=== PATIENT | male | born 1960 | race Caucasian/White ===

== ENCOUNTER → 2017-11-01 09:25 | Outpatient (CLI) | payer OTHER, SELFPAY ==
--- NOTE | 2017-11-01 08:11 | VDLE_ITS ---
Reason For Study: LEG SWELLING RIGHT LEFT GSV is normal. CFV is compressible, spontaneous, phasic, CFV is compressible, spontaneous, phasic, competent, and demonstrates normal competent and demonstrates normal augmentation. augmentation. FV is compressible, spontaneous, phasic, competent and demonstrates normal augmentation. POP V is compressible, spontaneous, phasic, competent and demonstrates normal augmentation. T/P Trunk is compressible. PTV is compressible. RT PerV is compressible. Procedure Exam performed in department. A preliminary report was called and/or faxed to Dr. Tellez. Interpretation Summary Deep veins of the right lower extremity are patent and compressible segmentally. There is no evidence of right lower extremity deep vein thrombosis. Valvular competence appears intact within the proximal deep venous system on the right . The right greater saphenous vein appears patent and compressible segmentally. Ordering Physician: Tessa Tellez Performed By: Sindy Richardson RVT
--- NOTE | 2017-11-01 09:25 | DT_ITS ---
This patient was seen during an EMR downtime October 29, 2017 - November 05, 2017. This patient may have a combination of paper and electronic documentation or all paper documentation. All documentation is viewable within the e-chart portion of [facility] for each patient visit.
== END ==
PROVIDERS: Family Provider Internal Medicine; PCP Internal Medicine; Visit Provider Internal Medicine
DX: M79.89 Other specified soft tissue disorders (principal)
CPT/HCPCS: 93971

== ENCOUNTER → 2019-03-05 12:00 | Outpatient (CLI) | payer OTHER, SELFPAY ==
--- NOTE | 2019-03-05 12:09 | US_ITS ---
STUDY: SCROTUM ULTRASOUND REASON FOR EXAM: Male, 58 years old. Left testicular pain TECHNIQUE: Ultrasound evaluation of the scrotum was performed with color Doppler and static ellis-scale imaging. COMPARISON: None. FINDINGS: RIGHT TESTICLE INTRATESTICULAR: There is a normal size of the right testicle. The right testicle measures 4.7 x 2.9 x 2.3 cm. There is a homogenous echotexture. There is normal arterial and normal venous vascularity. There is no demonstrated right testicular mass or cyst. EXTRATESTICULAR: The epididymis is normal in size. The epididymis head measures 1.0 x 1.2 x 0.7 cm. There is normal vascularity of the epididymis. There is no demonstrated epididymal cystic structure. There is no demonstrated hydrocele. There is no demonstrated varicocele. There is no demonstrated extratesticular mass or cyst. LEFT TESTICLE INTRATESTICULAR: There is a normal size of the left testicle. The left testicle measures 4.4 x 3.1 x 2.4 cm. There is a homogenous echotexture. There is normal arterial and normal venous vascularity. There is no demonstrated left testicular mass or cyst. EXTRATESTICULAR: The epididymis is enlarged. The epididymis head measures 0.8 x 1.7 x 1.5 cm. There is normal vascularity of the epididymis. There is a 0.9 x 1.0 x 1.0 cm left epididymal head cyst. There is a small hydrocele. There is no demonstrated varicocele. There is no demonstrated extratesticular mass or cyst. US/Testicular with Arterial Flow IMPRESSION: Left epididymal head cyst. Small left hydrocele. Electronically Signed: Lito Carlisle MD at 19:39 EDT , Service support ,
== END ==
PROVIDERS: Family Provider Internal Medicine; PCP Internal Medicine; Referring Provider Internal Medicine; Visit Provider Internal Medicine
DX: N50.812 Left testicular pain (principal)
CPT/HCPCS: 76870; 93976

== ENCOUNTER → 2020-02-23 16:23 | Outpatient (CLI) | payer OTHER, SELFPAY ==
[2016-06-16 23:44] VITALS: BMI 31.6
[2020-02-23 18:04] LABS: Absolute Lymphocyte Count 1.48 X10^3/uL (0.83-4.51); Absolute Neutrophil Count 16.3 X10^3/uL (2.0-7.7); Basophil# 0.05 X10^3/uL; Basophil% 0.3 % (0-1); Eosinophil# 0.02 X10^3/uL; Eosinophils% 0.1 % (0-5); Hemoglobin 15.3 g/dL (13.0-16.5); Lymphocyte # 1.48 X10^3/ul (4.0); Lymphocyte % 7.6 % (19-41); Mean Corpuscular Volume 85.2 fL (80-94); Mean Platelet Vol. 10.8 fl (6.2-12.0); Monocyte% 8.2 % (0-10); NRBC Flagged by Analyzer 0 % (0-5); Neutrophil # 16.27 X10^3/uL (2.7-7.7); Neutrophil % 83.2 % (47-70); POSITIVE DIFFERENTIAL YES; Platelet Count 285 K/mm3 (150-450); RBC Distribution Width CV 13.1 % (11.6-14.6); RBC Distribution Width SD 40.8 fl (35.1-43.9); Red Blood Count 5.28 M/mm3 (4.6-6.2); White Blood Count 19.5 K/mm3 (4.4-11.0)
[2020-02-23 18:15] LABS: Differential Indicated SCAN CRITERIA MET
[2020-02-23 18:21] LABS: ALB/GLOB Ratio 0.8 RATIO (0.9-2.4); AST(SGOT) 10 U/L (15-37); Alanine Aminotransfer ALT/SGPT 30 U/L (16-61); Albumin, Serum 3.5 g/dL (3.2-5.0); Alkaline Phosphatase 117 U/L (45-117); Amylase 25 U/L (25-115); Anion Gap 6 (5-15); BUN 12 mg/dL (7-18); Calcium,Total 9.3 mg/dL (8.5-10.1); Chloride 98 mmol/L (98-107); EST Glomerular Filtration Rate 66 mL/min (>60); Est Glom Filt Rate - Afr Amer 79 mL/min (>60); Globulin 4.5 g/dL (2.2-4.2); Glucose 261 mg/dL (74-106); Lipase 59 U/L (73-393); Sodium Level 129 mmol/L (136-145)
[2020-02-23 18:44] LABS: Differential Comment SCANNED
[2020-02-24 15:40] LABS: Pathologist Review Reviewed
== END ==
PROVIDERS: PCP Internal Medicine; Referring Provider Internal Medicine; Visit Provider Internal Medicine
DX: R10.11 Right upper quadrant pain (principal)
CPT/HCPCS: 36415; 80053; 82150; 83690; 85025

== ENCOUNTER → 2020-02-24 10:22 | Outpatient (CLI) | payer OTHER, SELFPAY ==
[2016-06-16 23:44] VITALS: BMI 31.6
--- NOTE | 2020-02-24 10:26 | US_ITS ---
STUDY: ABDOMINAL ULTRASOUND - RIGHT UPPER QUADRANT REASON FOR VISIT: Male, 59 years old RUQ PAIN TECHNIQUE: Ultrasound evaluation of the right upper quadrant was performed with real-time and static ellis-scale imaging. TECHNICAL QUALITY: Adequate. COMPARISON: None. FINDINGS: Liver: The liver measures 15.1 cm. There is normal echogenicity of the liver. The bile ducts are within normal limits. There is hepatic color flow. The direction of portal flow is hepatopetal. There is no demonstrated mass lesion. Gallbladder: Normal distended gallbladder. The gallbladder wall is thickened and measures 8.7 mm. There is a positive sonographic Bustamante''s sign. There is pericholecystic fluid. Sludge is seen within the gallbladder lumen. Common Bile Duct (C.B.D.): The common bile duct measures 5.9 mm. Pancreas: Normal size of the head, body and tail of the pancreas. There is normal echogenicity of the pancreas. There is no demonstrated pancreatic mass or cyst. Right Kidney: Normal size of the right kidney. The right kidney measures 10.8 cm x 5.7 cm x 5.7 cm. Normal renal cortex. The right cortex measures 1.6 cm. There is no demonstrated renal mass or cyst. There is no right hydronephrosis. US/Gallbladder IMPRESSION: Gallbladder sludge. Thickening of the gallbladder wall with small amount of pericholecystic fluid. Findings are in keeping with cholecystitis. Electronically Signed: Horacio Muller, at 12:13 EDT , Service support ,
== END ==
PROVIDERS: PCP Internal Medicine; Referring Provider Internal Medicine; Visit Provider Internal Medicine
DX: R10.11 Right upper quadrant pain (principal)
CPT/HCPCS: 76705

== ENCOUNTER 2020-02-24 13:54 | Observation (INO) | payer OTHER, SELFPAY ==
[2020-02-24 13:55] VITALS: BP 135/89; PULSE 116; RESP 16; TEMP 37.3; O2SAT 97; BMI 32.3
--- NOTE | 2020-02-24 14:08 | ED.VIS.GEN ---
History of Present Illness Chief Complaint: Abd Pain Informant: Patient Narrative: Patient states that on Sunday night when he ate a pizza began to experience acute abdominal pain. States over the next several days he found that he just did not need he did not really feel that bad. Today he had some outpatient blood work that showed a 19,000 white count and he had a gallbladder ultrasound that showed sludge pericholecystic fluid and gallbladder wall thickening. Dr. Lipscomb from general surgery was contacted who asked the patient to come to the hospital. Patient last had anything to drink at 2130 hours last night. Past Medical History - Allergies and Home Meds Allergies/Adverse Reactions: Allergies No Known Allergies Allergy (Verified 02/24/20 13:54) Past Medical History: - - Diabetes Surgical History: appendectomy, tonsillectomy Smoking Status: Never smoker Drugs: None Review of Systems General: Denies: Chills, Fever, Sweats Eyes: Denies: Visual changes - bilaterally, Diplopia ENT: Denies: Rhinorrhea, Sore throat Cardiovascular: Denies: Chest pain, Palpitations Respiratory: Denies: Dyspnea, Cough, Dyspnea on exertion Gastrointestinal: Reports: Abdominal pain, Nausea. Denies: Vomiting, Diarrhea, Melena, Hematochezia Genitourinary: Denies: Dysuria, Hematuria, Frequency Musculoskeletal: Denies: Back pain, Extremity Pain Skin: Denies: Rash, Wounds Neurological: Denies: Headache, Weakness, Numbness Physical Exam Vital Signs/Narrative: Vital Signs Temp Pulse Resp BP Pulse Ox 02/24/20 13:55 99.1 F 116 H 16 135/89 H 97 Inital Vital Signs reviewed: Yes General: Well nourished, Well developed, No Acute Distress Head: Normocephalic, Atraumatic Eyes: Perrl, EOMI ENT: Moist mucous membranes, No rhinorrhea Neck: Supple, Nontender Cardiovascular: Regular rate, Regular rhythm, No murmurs Respiratory: No distress, CTA bilaterally, Chest nontender Abdomen: Soft, Nondistended, Normal bowel sounds, Tender, Guarding, Rebound tenderness Back: Nontender, Normal Inspection Extremities: Nontender, No edema Skin: Normal color, No rash Neurological: Alert, Oriented x3, Cranial nerves II-XII grossly intact, Normal Strength, Normal Sensation Psychological: Normal affect, Normal Mood Diagnostic/Tx/Re-eval US/Gallbladder IMPRESSION: Gallbladder sludge. Thickening of the gallbladder wall with small amount of pericholecystic fluid. Findings are in keeping with cholecystitis. Electronically Signed: Horacio Yohana, at 12:13 EDT - EKG Initial EKG Interpretation: Sinus Rhythm - EKG demonstrates a normal sinus rhythm at a rate of 93 without ectopy or concerning features of ACS - Medical Decision Making Patient's white count is 19,000. AST and ALT are not elevated. Normal lipase. Dr. Lipscomb was contacted. He will be in the emergency department to see the patient. Patient will be admitted for cholecystectomy. He received IV fluids and Zosyn. ED Disposition - Plan for ED Patient: Disposition: Acute Care Hospital [facility] Diagnosis: Acute cholecystitis
[2020-02-24] MEDS: 0.9% Normal Saline 1,000 ML 999 ML IV (14:11)
[2020-02-24 14:31] VITALS: BP 154/81; RESP 16; TEMP 36.7; O2SAT 97; BMI 32.3
--- NOTE | 2020-02-24 14:50 | EKG12_ITS ---
Test Reason : PREOP Blood Pressure : / mmHG Vent. Rate : 093 BPM Atrial Rate : 093 BPM P-R Int : 150 ms QRS Dur : 078 ms QT Int : 350 ms P-R-T Axes : 033 003 000 degrees QTc Int : 435 ms Normal sinus rhythm Normal ECG Confirmed by PILY RIOS, COTY ([id number]), tightener STEVE AWAD ([id number]) on 03/02/2020 8:59:36 AM Referred By: Tessa Tellez Confirmed By:BETSEY NASCIMENTO MD
[2020-02-24 14:55] VITALS: BP 154/81; PULSE 101; RESP 14; TEMP 36.8; O2SAT 96
[2020-02-24] MEDS: 0.9% Normal Saline 1,000 ML 150 ML IV (15:18)
[2020-02-24 15:31] VITALS: BMI 32.3
[2020-02-24 15:39] VITALS: BMI 31.6
[2020-02-24 16:01] VITALS: BMI 31.6
[2020-02-24 16:20] VITALS: BP 140/82; PULSE 90; RESP 18; TEMP 36.9; O2SAT 97
--- NOTE | 2020-02-24 16:37 | HP.PCM_ITS ---
Problem List (1) Acute cholecystitis Status: Acute History of Present Illness Date of Admission: 02/24/20 Patient states that on Sunday night when he ate a pizza began to experience acute abdominal pain. States over the next several days he found that he just did not need he did not really feel that bad. Today he had some outpatient blood work that showed a 19,000 white count and he had a gallbladder ultrasound that showed sludge pericholecystic fluid and gallbladder wall thickening. Patient last had anything to drink at 2130 hours last night. Past Medical History Allergies No Known Allergies Allergy (Verified 02/24/20 13:54) Home Medications: Ambulatory Orders Medication Instructions Recorded Insulin Aspart [Novolog Flexpen] 12 units SQ TIDCM 06/17/16 Insulin Detemir [Levemir FlexPen] 20 mg SQ DAILY 06/17/16 Aspirin [Aspirin, Baby] 81 mg PO DAILY@0800 02/24/20 [place]-3 Fatty Acids/Fish Oil 1 ea PO DAILY 02/24/20 [[place] 3 1,000 mg Softgel] Surgical History: appendectomy, tonsillectomy Smoking Status: Never smoker Tobacco Use: Non-smoker Drugs: None - *Family History Maternal History Items: No pertinent history Review of Systems Constitutional: Denies: Chills, Fever, Weight Change Cardiovascular: Denies: Chest Pain, Chest Pressure, Chest Tightness, Palpitations Respiratory: Denies: Cough, Hemoptysis, Shortness of breath at rest, Shortness of breath upon exertion, Wheezing Gastrointestinal: Reports: Abdominal Pain, Nausea Genitourinary: Denies: Dysuria, Frequency, Hematuria, Urgency VTE Information - Inpt Only VTE Present on Admission: No VTE Mechan Device Prophylaxis: SCD's VTE Pharm Prophylaxis ordered?: No Reason prophylaxis not ordered:: Treatment Not Indicated Patient Problems: Active and Suspected Problems Acute cholecystitis (Acute) - Physical Exam Vitals/I&O's: Vital Signs Temp Pulse Resp BP Pulse Ox 98.4 F 90 18 140/82 H 97 02/24/20 16:20 02/24/20 16:20 02/24/20 16:20 02/24/20 16:20 02/24/20 16:20 Oxygen Delivery Method Room Air Weight: 195 lb 12.786 oz Body Mass Index (BMI) 31.6 Intake and Output for Last 24 Hours 02/22/20 02/23/2020 23:59 23:59 23:59 Intake Total 1100 / 1100 Balance 1100 / 1100 General: Alert, Oriented x3 Lungs: Clear to auscultation Cardiovascular: Regular rate, Regular Rhythm, No murmurs Abdomen: Bowel Sounds Present, Soft, Non-Distended, Tender - Patient has tenderness in the right upper quadrant. There is no rebound guarding or peritoneal signs identified. Current Medications Hydromorphone HCl (Dilaudid Inj) 0.5 - 1 mg IV Q2H PRN PRN PRN Reason: Pain Score 1-10/10 Sodium Chloride () 1,000 mls @ 150 mls/hr IV .Q6H40M SUMA Last Admin: 02/24/20 15:18 Dose: 150 mls/hr Documented by: Sodium Chloride () 1,000 mls @ 100 mls/hr IV .Q10H SUMA Piperacillin Sod/Tazobactam (Sod 3.375 gm/ Sodium Chloride) 50 mls @ 12.5 mls/hr IV Q8 SUMA Ondansetron HCl (Zofran) 4 mg IV Q8H PRN PRN PRN Reason: NAUSEA Sodium Chloride () 10 - 40 ml IV UD PRN PRN Reason: SALINE FLUSH Assessment/Plan All Active Problems Acute cholecystitis (Acute) Plan will be to admit the patient tonight and perform a laparoscopic cholecystectomy on him early in the morning. Risk benefits to include bleeding infection possible injury to surrounding structures which may require further surgery. Patient also understands that blood clots heart attacks pneumonia strokes are part of general surgery risk. All questions asked were answered and he is willing to proceed. Inpatient E&M: 29044 Init Hosp L3
[2020-02-24 16:45] LABS: Bedside Glucose 181 mg/dL (70-110)
--- NOTE | 2020-02-24 17:24 | PN_ITS ---
<Chayito Solo [employer]PATCH[employer] - Last Filed: 02/24/20 17:29> Patient Problems: Active and Suspected Problems Acute cholecystitis (Acute) Subjective: Patient seen and examined. Reports Sunday night he ate pizza and has had right upper quadrant pain, indigestion, gas since that time. He states the pain has kept him up at night. He went to his primary care physician yesterday who obtained lab work. He then had gallbladder ultrasound today which showed cholecystitis. Dr. Lipscomb admitting for cholecystectomy. He has a past medical history of type 2 diabetes mellitus. Denies other past medical history. - Physical Exam Vitals/I&O's: Vital Signs Temp Pulse Resp BP Pulse Ox 98.4 F 90 18 140/82 H 97 02/24/20 16:20 02/24/20 16:20 02/24/20 16:20 02/24/20 16:20 02/24/20 16:20 Oxygen Delivery Method Room Air Weight: 195 lb 12.786 oz Body Mass Index (BMI) 31.6 Intake and Output for Last 24 Hours 02/22/20 02/23/20 02/24/20 23:59 23:59 23:59 Intake Total 1302.5 / 1302.5 Balance 1302.5 / 1302.5 General: Alert, Oriented x3, Cooperative HEENT: Atraumatic, PERRLA, EOMI, Normocephalic Neck: Supple, No JVD, Negative Carotid Bruits Lungs: Clear to auscultation, Normal air movement Cardiovascular: Regular rate, No murmurs Abdomen: Bowel Sounds Present, Soft, Non-Distended, Tender Extremities: No clubbing, No cyanosis, No edema, Capillary Refill Less than 3 Seconds Skin: No rashes, No breakdown Musculoskeletal: No Tenderness to Palpation of Joints or Extremities Neurological: Cranial nerves II-XII grossly intact, Neuro grossly intact Psych/Mental Status: Normal Affect, Appropriate Laboratory Results 02/24/20 16:25: POC Glucose 181 H Current Medications Dextrose (D50w Syringe) 0 gm IV X1 PRN; Protocol PRN Reason: Hypoglycemia Glucagon () 1 mg IM .X1 PRN PRN Reason: Hypoglycemia Hydromorphone HCl (Dilaudid Inj) 0.5 - 1 mg IV Q2H PRN PRN PRN Reason: Pain Score 1-10/10 Sodium Chloride () 1,000 mls @ 100 mls/hr IV .Q10H SUMA Last Infusion: 02/24/20 16:39 Dose: 100 mls/hr Documented by: Piperacillin Sod/Tazobactam (Sod 3.375 gm/ Sodium Chloride) 50 mls @ 12.5 mls/hr IV Q8 SUMA Insulin Human Lispro (Humalog Kwikpen (Bkc)) 12 unit SC TIDCM SUMA Last Admin: 02/24/20 16:56 Dose: Not Given Documented by: Insulin Human Lispro (Humalog Kwikpen (Bkc)) 0 unit SC ACHS SUMA; Protocol Non-Formulary Medication (Insulin Detemir [Levemir Flexpen]) 20 mg SQ DAILY SUMA Ondansetron HCl (Zofran) 4 mg IV Q8H PRN PRN PRN Reason: NAUSEA Sodium Chloride () 10 - 40 ml IV UD PRN PRN Reason: SALINE FLUSH Medical Necessity - Tobacco Use Smoking Status: Never smoker Tobacco Use: Non-smoker Assessment/Plan All Active Problems Acute cholecystitis (Acute) 1. Type 2 diabetes mellitus-recent hemoglobin A1c by primary care provider 8.3%. Hold Levemir. Accu-Cheks with sliding scale insulin. 2. Acute cholecystitis-plan for cholecystectomy in a.m. PRN pain regimen. Management per surgery. DVT prophylaxis-SCDs This patient was seen by CLARA Goldman under the supervision of Dr. Perez. <Brynn Perez - Last Filed: 02/24/20 19:30> - Physical Exam Vitals/I&O's: Vital Signs Temp Pulse Resp BP Pulse Ox 98.4 F 90 18 140/82 H 97 02/24/20 16:20 02/24/20 16:20 02/24/20 16:20 02/24/20 16:20 02/24/20 16:20 Oxygen Delivery Method Room Air Weight: 88.813 kg Body Mass Index (BMI) 31.6 Intake and Output for Last 24 Hours 02/22/20 02/23/20 02/24/20 23:59 23:59 23:59 Intake Total 1302.5 / 1302.5 Balance 1302.5 / 1302.5 Laboratory Results 02/24/20 16:25: POC Glucose 181 H 02/24/20 17:15: Sodium 135 L, Potassium 3.6, Chloride 104, Carbon Dioxide 25.0, Anion Gap 6, BUN 15, Creatinine 1.09, Estim Creat Clear Calc 65.04, Est GFR (MDRD) Af Amer 89, Est GFR (MDRD) Non-Af 73, BUN/Creatinine Ratio 13.8, Glucose 166 H, Calcium 8.6, Total Bilirubin 2.90 H, AST 9 L, ALT 23, Alkaline Phosphata se 107, Total Protein 7.2, Albumin 2.9 L, Globulin 4.3 H, Albumin/Globulin Ratio 0.7 L Current Medications Dextrose (D50w Syringe) 0 gm IV X1 PRN; Protocol PRN Reason: Hypoglycemia Glucagon () 1 mg IM .X1 PRN PRN Reason: Hypoglycemia Hydromorphone HCl (Dilaudid Inj) 0.5 - 1 mg IV Q2H PRN PRN PRN Reason: Pain Score 1-10/10 Sodium Chloride () 1,000 mls @ 100 mls/hr IV .Q10H SUMA Last Infusion: 02/24/20 16:39 Dose: 100 mls/hr Documented by: Piperacillin Sod/Tazobactam (Sod 3.375 gm/ Sodium Chloride) 50 mls @ 12.5 mls/hr IV Q8 SUMA Insulin Human Lispro (Humalog Kwikpen (Bkc)) 0 unit SC ACHS SUMA; Protocol Ondansetron HCl (Zofran) 4 mg IV Q8H PRN PRN PRN Reason: NAUSEA Sodium Chloride () 10 - 40 ml IV UD PRN PRN Reason: SALINE FLUSH Assessment/Plan This patient was seen in conjunction with Chayito Solo NP. I have independently interviewed and examined the patient and reviewed pertinent historical, laboratory, and other data. Please refer to her note for patient's presentation, findings, and recommendations. 59-year-old male with past medical history of type II DM, ongoing for about 10 years, follows with Dr. Tellez, probable history of reactive airway disease who comes in with complaints of right upper quadrant pain ongoing for 5 days. Patient stated that he has had irritable bowel syndrome for more than 6 months. He gets bloated and subsequently has diarrhea with improvement in his discomfort. He ate pizza 5 days ago and had abdominal distention, abdominal pain more in the right upper quadrant. This was worse when he ate. Relieved with no food. Sometimes relieved when he laid on his left side. It persisted the next day and he drank a bottle of Pepto-Bismol with no improvement. He saw his primary care doctor yesterday and blood work done showed elevated totral bilirubin of 3.50. He was scheduled for ultrasound of the abdomen which showed acute cholecystitis with pericholecystic fluid with biliary sludge. Vitals were reviewed -stable Repeat blood work showed sodium of 135, improved from 129, total bilirubin was 2.90, improved from 3.5. Physical Exam: Gen: Comfortable, not pale, not jaundiced, alert oriented x3 CVS:HS I +II, regular, no murmurs RESP: CTA GI: BS present and normal, nontender, no palpable organs EXT:No edema ASSESSMENT: 1. Acute cholecystitis 2. Hyponatremia 3. Type 2 DM, recent HbA1c a week ago was 8.3 Plan: Continue on IV Zosyn We will hold off on insulin and pre-meal for now Continue with blood glucose checks with insulin sliding scale May resume insulins after surgery tomorrow if patient has started to take in food. Inpatient E&M: 67775 Subs Hosp L2
[2020-02-24 18:20] LABS: ALB/GLOB Ratio 0.7 RATIO (0.9-2.4); AST(SGOT) 9 U/L (15-37); Alanine Aminotransfer ALT/SGPT 23 U/L (16-61); Albumin, Serum 2.9 g/dL (3.2-5.0); Alkaline Phosphatase 107 U/L (45-117); Anion Gap 6 (5-15); BUN 15 mg/dL (7-18); BUN/Creat Ratio 13.8 RATIO (10-20); Calcium,Total 8.6 mg/dL (8.5-10.1); Chloride 104 mmol/L (98-107); Creatinine, Serum 1.09 mg/dL (0.70-1.30); EST Glomerular Filtration Rate 73 mL/min (>60); Est Glom Filt Rate - Afr Amer 89 mL/min (>60); Estimated Creatinine Clearance 65.04 ml/min; Globulin 4.3 g/dL (2.2-4.2); Glucose 166 mg/dL (74-106); Potassium 3.6 mmol/L (3.5-5.1); Protein, Total 7.2 g/dL (6.4-8.2); Sodium Level 135 mmol/L (136-145)
[2020-02-24 21:26] VITALS: BP 115/67; PULSE 88; RESP 16; TEMP 38; O2SAT 100
[2020-02-24 22:05] LABS: Bedside Glucose 218 mg/dL (70-110)
[2020-02-25] VITALS (13 sets, daily range): BP systolic 121–143; BP diastolic 67–76; PULSE 73–94; RESP 16–18; TEMP 36.4–37.6; O2SAT 94–98; BMI 31.6
[2020-02-25] MEDS: 0.9% Normal Saline 1,000 ML 100 ML IV ×3 (00:04→20:50)
[2020-02-25 05:20] LABS: Bedside Glucose 178 mg/dL (70-110)
[2020-02-25 05:49] LABS: Absolute Lymphocyte Count 1.61 X10^3/uL (0.83-4.51); Absolute Neutrophil Count 7.9 X10^3/uL (2.0-7.7); Basophil# 0.06 X10^3/uL; Basophil% 0.6 % (0-1); Eosinophils% 1.9 % (0-5); Hemoglobin 13.9 g/dL (13.0-16.5); Lymphocyte # 1.61 X10^3/ul (4.0); Mean Corp Hgb Conc 33.9 g/dL (32-36); Mean Corpuscular Hgb 29.6 pg (27.0-32.0); Mean Corpuscular Volume 87.2 fL (80-94); Mean Platelet Vol. 10.1 fl (6.2-12.0); Monocyte# 0.84 X10^3/uL; Monocyte% 7.8 % (0-10); NRBC Flagged by Analyzer 0 % (0-5); Neutrophil # 7.94 X10^3/uL (2.7-7.7); Neutrophil % 73.7 % (47-70); Platelet Count 306 K/mm3 (150-450); RBC Distribution Width CV 12.9 % (11.6-14.6); RBC Distribution Width SD 41.1 fl (35.1-43.9); White Blood Count 10.8 K/mm3 (4.4-11.0)
[2020-02-25 06:06] LABS: ALB/GLOB Ratio 0.6 RATIO (0.9-2.4); AST(SGOT) 15 U/L (15-37); Alanine Aminotransfer ALT/SGPT 26 U/L (16-61); Albumin, Serum 2.8 g/dL (3.2-5.0); Alkaline Phosphatase 106 U/L (45-117); Amylase 33 U/L (25-115); Anion Gap 5 (5-15); BUN 12 mg/dL (7-18); BUN/Creat Ratio 11.4 RATIO (10-20); Calcium,Total 8.6 mg/dL (8.5-10.1); Chloride 103 mmol/L (98-107); Creatinine, Serum 1.05 mg/dL (0.70-1.30); EST Glomerular Filtration Rate 76 mL/min (>60); Est Glom Filt Rate - Afr Amer 92 mL/min (>60); Estimated Creatinine Clearance 67.51 ml/min; Globulin 4.5 g/dL (2.2-4.2); Glucose 161 mg/dL (74-106); Lipase 59 U/L (73-393); Potassium 3.7 mmol/L (3.5-5.1); Protein, Total 7.3 g/dL (6.4-8.2); Sodium Level 133 mmol/L (136-145)
[2020-02-25] MEDS: Bupivacaine Mpf 0.5% 30 ML VIAL (08:07)
--- NOTE | 2020-02-25 08:20 | GALL_PTH ---
PATIENT: HOSEA CUENCA LOC: MS3 U#:[id number] AGE/SX: 59/M ROOM: OK310 RE02/24/[address]: Dr. Wesley Jenkins DO : 1960 BED: 1 DIS: 02/26/2020 SPEC #: [id number] RECD: 02/25/20 10:39 STATUS: CHRIS REQ #: [id number] SELENA: 02/25/20 08:[address]: Dylon Lipscomb DEPT: SURGICAL PATHOLOGY RECD BY: Fernando Ramirez ENTERED: 02/25/20 11:41 SP TYPE: GALLBLADDE OTHR DR: MD Dr. yDlon Dia MD Dr. Eric Jopperi, DO Tissues: Gallbladder, NOS Procedures: Surgery Specimen Level III Comments: @ Ordering doctor for SUIII edited from to DR.DPEABO Pappas by TAMAR at 02/25/20 1312 @ Submitting doctor edited from to DR.DPEABO Pappas by TAMAR at 02/25/20 1312 HEADER OPERATION: Laparoscopic cholecystectomy PRE-OP DIAGNOSIS: Acute cholecystitis TISSUE SUBMITTED: Gallbladder MICROSCOPIC DIAGNOSIS Gallbladder, cholecystectomy: Acute and chronic hemorrhagic and ulcerated cholecystitis and cholelithiasis. Reactive epithelial changes. SJ:calixto 02/26/20 MICROSCOPIC DESCRIPTION Slides are reviewed. GROSS DESCRIPTION Received is one container labeled with the patient's name and designated gallbladder. The specimen consists of a gallbladder measuring 10 x 5 x 3.5 cm. The external surface is smooth and glistening. Focally, it is granular, hemorrhagic and contains cautery artifact. The lumen of the gallbladder contains yellow mucoid bile and multiple black stones averaging 0.2 cm. The mucosa is bile-stained and without any mass lesions. The gallbladder wall averages 0.6 cm in thickness and is free of mass lesions. Replanting Machine Crewman sections of the gallbladder and the cystic duct at margin of resection are submitted in one cassette. / AM:calixto 02/25/20 TC:2 CPT: 04943
[2020-02-25] MEDS: Lactated Ringers 1,000 ML 100 ML IV (08:41)
--- NOTE | 2020-02-25 08:57 | OP.PCM_ITS ---
Problem List (1) Acute cholecystitis Status: Acute Report of Operation Date of Procedure: 02/25/20 Pre-Operative Diagnosis: Acute cholecystitis Post-Operative Diagnosis: Same Surgery/Procedure Performed:: Laparoscopic cholecystectomy Anesthesiologist: Ishmael Villalba Specimen's removed: Gallbladder Estimated Blood Loss (mL): < 25 cc Description of Procedure: Patient was brought into the operating room. Placed in the supine position. Under excellent general trach intubation the abdomen was sterilely prepped draped usual fashion. Local was injected infraumbilically. Incision was carried down to the fascia. Fascia was grasped with a [place]. Varies needle was placed inside the abdomen. The abdomen was insufflated 15 torr. A 10/12 trocar was placed without difficulty. The patient was placed in the head up and rotated to the left position. Subxiphoid #5 trochars placed. Inferior to this another #5 trocar laterally another #5 trocar. All of these under direct visualization without injury to underlying structures. I aspirated out the gallbladder. It was thick edematous and clearly acutely inflamed. I dissected down to the cystic duct remarkably I was able to find this without much difficulty at all I placed a Hemoclip proximally distally and ligated the duct. Divide the cystic artery placed a Hemoclip proximally distally and ligated the artery. Deliver the gallbladder from the gallbladder bed with use of electrocautery. Good pneumostasis. Placed a specimen a specimen bag and deli urszula through the umbilical port. I reinflated the abdomen used electrocautery on the liver bed since it was gangrenous in appearance I placed a drain through the lateral side-port suturing it to the skin with a 3-0 nylon. I deflated the abdomen and remove the trochars. I closed the fascia the umbilical port with interrupted 0 Vicryls. Skin incisions were closed with subcuticular stitches of 4 Monocryl. Steri-Strips were applied sterile dressings were applied and the patient tolerated the procedure well. - Admit VTE Documentation VTE Present on Admission: No VTE Mechan Device Prophylaxis: SCD's VTE Pharm Prophylaxis ordered?: No Reason prophylaxis not ordered:: Treatment Not Indicated [id number]: [id number] Laparoscopic cholecystectomy
[2020-02-25 09:01] LABS: Bedside Glucose 238 mg/dL (70-110)
[2020-02-25 10:10] LABS: Bedside Glucose 252 mg/dL (70-110)
--- NOTE | 2020-02-25 11:03 | PCM.PN.HOSP ---
Patient Problems: Active and Suspected Problems Acute cholecystitis (Acute) Reason for Visit: cholecystitis Subjective: Feels better after cholecystectomy. Had been having abdominal issues for about a month with eating. Vitals/I&O's: Vital Signs Temp Pulse Resp BP Pulse Ox 36.7 C 84 16 132/68 H 95 02/25/20 09:37 02/25/20 09:37 02/25/20 09:37 02/25/20 09:37 02/25/20 09:37 Oxygen Delivery Method Room Air Weight: 88.813 kg Body Mass Index (BMI) 31.6 Finger Stick Blood Glucose 238 Intake and Output for Last 24 Hours 02/23/20 02/24/20 02/25/20 23:59 23:59 23:59 Intake Total 1774.17 / 4.17 1912.42 / 191.42 Output Total 555 / 555 Balance 1774.17 / 2133.17 1357.42 / 1357.42 General: Alert, No apparent distress HEENT: Atraumatic, Normocephalic Oral: Moist Mucosa, No Gingival or Mucosal Lesions/ Ulcerations Neck: No Nodes, Thyroid Normal Size and Texture Lungs: Clear to auscultation, Normal air movement, No rhonchi, No wheeze, No rales Cardiovascular: Regular rate, Regular Rhythm, Normal S1, Normal S2 Abdomen: Hypoactive Bowel Sounds, Distended, Tender - slgiht Extremities: No clubbing, No edema Psych/Mental Status: Normal Affect, Appropriate Laboratory Results 02/24/20 16:25: POC Glucose 181 H 02/24/20 17:15: Sodium 135 L, Potassium 3.6, Chloride 104, Carbon Dioxide 25.0, Anion Gap 6, BUN 15, Creatinine 1.09, Estim Creat Clear Calc 65.04, Est GFR (MDRD) Af Amer 89, Est GFR (MDRD) Non-Af 73, BUN/Creatinine Ratio 13.8, Glucose 166 H, Calcium 8.6, Total Bilirubin 2.90 H, AST 9 L, ALT 23, Alkaline Phosphatase 107, Total Protein 7.2, Albumin 2.9 L, Globulin 4.3 H, Albumin/Globulin Ratio 0.7 L 02/24/20 21:31: POC Glucose 218 H 02/25/20 05:10: POC Glucose 178 H 02/25/20 05:30: WBC 10.8, RBC 4.70, Hgb 13.9, Hct 41.0, MCV 87.2, MCH 29.6, MCHC 33.9, RDW Std Deviation 41.1, RDW Coeff of Meredith 12.9, Plt Count 306, MPV 10.1, Immature Gran % (Auto) 1.000 H, Neut % (Auto) 73.7 H, Lymph % (Auto) 15.0 L, Stanley % (Auto) 7.8, Eos % (Auto) 1.9, Baso % (Auto) 0.6, Absolute Neuts (auto) 7.9 H, Absolute Lymphs (auto) 1.61, Nucleated RBC % 0 02/25/20 05:30: Sodium 133 L, Potassium 3.7, Chloride 103, Carbon Dioxide 25.0, Anion Gap 5, BUN 12, Creatinine 1.05, Estim Creat Clear Calc 67.51, Est GFR (MDRD) Af Amer 92, Est GFR (MDRD) Non-Af 76, BUN/Creatinine Ratio 11.4, Glucose 161 H, Calcium 8.6, Total Bilirubin 2.20 H, AST 15, ALT 26, Alkaline Phosphatase 106, Total Protein 7.3, Albumin 2.8 L, Globulin 4.5 H, Albumin/Globulin Ratio 0.6 L, Amylase 33, Lipase 59 L 02/25/20 08:57: POC Glucose 238 H 02/25/20 10:04: POC Glucose 252 H Current Medications Dextrose (D50w Syringe) 0 gm IV X1 PRN; Protocol PRN Reason: Hypoglycemia Glucagon () 1 mg IM .X1 PRN PRN Reason: Hypoglycemia Hydromorphone HCl (Dilaudid Inj) 0.5 - 1 mg IV Q2H PRN PRN PRN Reason: Pain Score 1-10/10 Sodium Chloride () 1,000 mls @ 100 mls/hr IV .Q10H [facility] Last Admin: 02/25/20 09:59 Dose: 100 mls/hr Documented by: Piperacillin Sod/Tazobactam (Sod 3.375 gm/ Sodium Chloride) 50 mls @ 12.5 mls/hr IV Q8 SUMA Last Infusion: 02/25/20 09:20 Dose: Infused Documented by: Sodium Chloride () 250 mls @ 15 mls/hr IV .[id number] PRN PRN Reason: Saline Flush Last Infusion: 02/25/20 05:02 Dose: 0 mls/hr Documented by: Sodium Chloride () 250 mls @ 15 mls/hr IV .[id number] PRN PRN Reason: Additional IVPB Infusion Insulin Human Lispro (Humalog Kwikpen (Bkc)) 0 unit SC ACHS [facility]; Protocol Last Admin: 02/25/20 05:14 Dose: Not Given Documented by: Ondansetron HCl (Zofran) 4 mg IV Q8H PRN PRN PRN Reason: NAUSEA Sodium Chloride () 10 - 40 ml IV UD PRN PRN Reason: SALINE FLUSH STROKE Vital Signs/Narrative: Vital Signs Temp Pulse Resp BP Pulse Ox 02/25/20 09:37 36.7 C 84 16 132/68 H 95 02/25/20 09:15 37.3 C 89 16 127/67 H 94 02/25/20 09:00 85 16 130/76 H 97 02/25/20 08:45 81 16 125/67 H 94 02/25/20 08:30 82 16 121/69 H 97 02/25/20 08:23 37.5 C H 82 16 138/67 H 98 Medical Necessity - Tobacco Use Smoking Status: Never smoker Tobacco Use: Non-smoker Assessment/Plan All Active Problems Acute cholecystitis (Acute) 1. DM2 resume levemir, but at a lower dose until eating adequately on SSI 2. Acute on chronic cholecystitis s/p lap barb drain in place 3. VTE prophylaxis: SCDs Inpatient E&M: [id number] [facility] Hosp L2
[2020-02-25] MEDS: Insulin Lispro 100 UNIT/ML INSULN.PEN SC ×3 (11:39→21:38)
[2020-02-25 12:46] LABS: Bedside Glucose 267 mg/dL (70-110)
--- NOTE | 2020-02-25 14:59 | CASEMGMT ---
Social Work Note Per biomass facilitator questions, pt has completed HCPOA and LW and have provided copies to [facility]. SW reviewed chart, no copies found. Pt made aware no copies are on chart. Pt states his son should be able to bring in copies. Celestina John PHONE MANAGER, WARP TESTER
[2020-02-25 16:50] LABS: Bedside Glucose 418 mg/dL (70-110)
[2020-02-25 21:56] LABS: Bedside Glucose 419 mg/dL (70-110)
[2020-02-26 02:00] VITALS: BP 110/52; PULSE 79; RESP 18; TEMP 36.7; O2SAT 99
[2020-02-26] MEDS: Insulin Lispro 100 UNIT/ML INSULN.PEN SC ×2 (06:27→11:12)
[2020-02-26 06:36] LABS: Bedside Glucose 265 mg/dL (70-110)
[2020-02-26] MEDS: 0.9% Normal Saline 1,000 ML 100 ML IV (07:55)
[2020-02-26 08:50] VITALS: BP 142/67; PULSE 78; RESP 18; TEMP 36.5; O2SAT 99
--- NOTE | 2020-02-26 09:40 | PCM.PN.HOSP ---
Patient Problems: Active and Suspected Problems Acute cholecystitis (Acute) Subjective: Feels better. Tolerating clears. Abdominal pain much improved. Vitals/I&O's: Vital Signs Temp Pulse Resp BP Pulse Ox 36.7 C 79 18 110/52 L 99 02/26/20 02:00 02/26/20 02:00 02/26/20 02:00 02/26/20 02:00 02/26/20 02:00 Oxygen Delivery Method Room Air Weight: 88.813 kg Body Mass Index (BMI) 31.6 Finger Stick Blood Glucose 238 Intake and Output for Last 24 Hours 02/24/20 02/25/20 02/26/20 23:59 23:59 23:59 Intake Total 1774.17 / 2134.17 3796.17 / 4156.17 1933 / 1933 Output Total 1715 / 2915 2210 / 2210 Balance 1774.17 / 2134.17 2081.17 / 1241.17 -277 / -277 General: Alert, No apparent distress HEENT: Atraumatic, Normocephalic Psych/Mental Status: Normal Affect, Appropriate Laboratory Results 02/25/20 10:04: POC Glucose 252 H 02/25/20 11:34: POC Glucose 267 H 02/25/20 16:18: POC Glucose 418 H 02/25/20 21:37: POC Glucose 419 H 02/26/20 06:26: POC Glucose 265 H Current Medications Dextrose (D50w Syringe) 0 gm IV X1 PRN; Protocol PRN Reason: Hypoglycemia Glucagon () 1 mg IM .X1 PRN PRN Reason: Hypoglycemia Hydromorphone HCl (Dilaudid Inj) 0.5 - 1 mg IV Q2H PRN PRN PRN Reason: Pain Score 1-10/10 Sodium Chloride () 1,000 mls @ 100 mls/hr IV .Q10H [facility] Last Admin: 02/26/20 07:55 Dose: 100 mls/hr Documented by: Piperacillin Sod/Tazobactam (Sod 3.375 gm/ Sodium Chloride) 50 mls @ 12.5 mls/hr IV Q8 SUMA Last Admin: 02/26/20 06:22 Dose: 12.5 mls/hr Documented by: Sodium Chloride () 250 mls @ 15 mls/hr IV .[id number] PRN PRN Reason: Saline Flush Last Infusion: 02/26/20 06:23 Dose: 0 mls/hr Documented by: Sodium Chloride () 250 mls @ 15 mls/hr IV .[id number] PRN PRN Reason: Additional IVPB Infusion Insulin Glargine (Lantus (Bkc)) 20 units SC DAILY [facility] Insulin Human Lispro (Humalog Kwikpen (Bk)) 0 unit SC ACHS [facility]; Protocol Last Admin: 02/26/20 06:27 Dose: 2 units Documented by: Ondansetron HCl (Zofran) 4 mg IV Q8H PRN PRN PRN Reason: NAUSEA Sodium Chloride () 10 - 40 ml IV UD PRN PRN Reason: SALINE FLUSH Medical Necessity - Tobacco Use Smoking Status: Never smoker Tobacco Use: Non-smoker Assessment/Plan All Active Problems Acute cholecystitis (Acute) 1. DM2 resume levemir at home dosing. 2. Acute on chronic cholecystitis s/p lap barb drain in place 3. VTE prophylaxis: SCDs Medically stable for discharge. EDGAR Lipscomb. Continue home medications with no changes. Inpatient E&M: [id number] [facility] Hosp L1
--- NOTE | 2020-02-26 09:49 | DCINST_ITS ---
Discharge Diet: Light diet - advance as tolerated Discharge Activity: May Not Drive - for 2-3 days or while taking narcotic pain medications., - - Do not drive, work heavy equipment or sign legal documents for 24 hours. May shower in (days): 1 - with the bandage in place. Additional Activity Instructions:: Pain medication may cause nausea. You should typically eat light foods as you take your pain medications. Pain medication may also cause constipation. If this is a problem for you, please discuss with your doctor. Call your doctor if your incision/area has: Continuous Slow Oozing, Sudden Increased Bleeding, Increased Pain/ Swelling, Increased Redness, Foul Smelling Discharge Call your doctor if you observe: Fever of 101 or Higher Suture Line Care: Avoid Pulling/Pushing, Avoid Pinching/Bending Additional Dressing/Incision Instructions:: Leave operative bandaids on for 2 days. When you remove dressing, leave Steri-Strips on until your follow-up appointment, or until the Steri-Strips fall off on their own. Allergies/Adverse Reactions: Allergies No Known Allergies Allergy (Verified 02/24/20 13:54) Medications to take at Discharge Insulin Aspart [Novolog Flexpen] 12 units SQ TIDCM 06/17/16 Insulin Detemir [Levemir FlexPen] 20 units SQ DAILY 06/17/16 Albuterol IH (ProAir) [Proair Hfa (SP)Vent Pts] 1 puff INHALATION Q6H PRN PRN 02/24/20 Dulera 100 Mcg/5 Mcg Inhaler 1 puff INHALATION BID PRN PRN 02/24/20 [place]-3 Fatty Acids/Fish Oil [[place] 3 1,000 mg Softgel] 1 ea PO DAILY 02/24/20 Primary Care Physician: Tessa Tellez MD [Primary Care Provider] - Test Results: Test results from this visit will be discussed in further detail at your follow- up appointment, if applicable. Please Follow Up With: Dylon Lipscomb MD - Please call [phone] to schedule an appointment. When: 7 days after your surgery.
[2020-02-26 11:46] LABS: Bedside Glucose 368 mg/dL (70-110)
[2020-02-26 12:08] VITALS: BP 132/60; PULSE 79; RESP 16; TEMP 36.7; O2SAT 100
== END 2020-02-26 11:51 | disposition home or self-care (01) ==
LOC: ED 14:53 → MS3 14:59
PROVIDERS: Internal Medicine; Admitting Provider Surgery; Emergency Provider Emergency Medicine; PCP Internal Medicine
PROC: (CPT 47610; principal; 2020-02-25 08:00)
DX: K80.12 Calculus of gallbladder with acute and chronic cholecystitis without obstruction (principal); Z79.4 Long term (current) use of insulin; E11.9 Type 2 diabetes mellitus without complications; Z79.82 Long term (current) use of aspirin; E87.1 Hypo-osmolality and hyponatremia; K58.0 Irritable bowel syndrome with diarrhea
CPT/HCPCS: 00790; 47562; 36415; 80053; 82150; 82962; 83690; 85025; 88304; 93005; 96361; 96365; 96366; 99218; 99251; 99284; J7030; J7050; J7120; A4216; G0378; G0463; J2405

== ENCOUNTER → 2022-10-10 | Outpatient (CLI) | payer OTHER, SELFPAY ==
--- NOTE | 2022-10-10 15:40 | CT_ITS ---
INDICATION: left parotid gland mass, swelling x 1 month, no prior surgery, hx diabetes. EXAMINATION: CT NECK WITH CONTRAST - CT Soft Tissue Neck W/ Contrast Injection TECHNIQUE: Helically acquired images were obtained of the neck following IV contrast. A radiation dose optimization technique was used for this scan. IV Contrast dosage and agent: RADIATION DOSAGE (If Supplied By Facility): CTDIvol = ( 18.70 ) mGy, DLP = ( 626.22 ) mGycm COMPARISON: FINDINGS: NASOPHARYNX: Unremarkable. SUPRAHYOID NECK: Unremarkable oropharynx, oral cavity, parapharyngeal space, and retropharyngeal space. INFRAHYOID NECK: Unremarkable larynx, hypopharynx, and supraglottis. THYROID: No focal lesions. SALIVARY GLANDS: The parotid glands are symmetric. The reported left parotid gland mass and swelling is not appreciated on this study. LYMPH NODES: No cervical or supraclavicular lymphadenopathy. VASCULAR STRUCTURES: Unremarkable. VISUALIZED PORTIONS OF THE ORBITS, PARANASAL SINUSES, MASTOID AIR CELLS AND SKULL BASE: Moderate mucosal thickening within the left maxillary sinus. Submandibular glands are normal. BONES: Unremarkable. THORACIC INLET: Clear lung apices. CT/Soft Tissue Neck WITH Contrast IMPRESSION: Parotid glands normal and symmetric. Consider ultrasound for further evaluation. Mucosal thickening of the left maxillary sinus. Electronically Signed: [place] MD, NIDA at 16:27 EDT ,
== END | disposition home or self-care (01) ==
PROVIDERS: PCP Internal Medicine; Referring Provider Internal Medicine; Visit Provider Internal Medicine
DX: K11.8 Other diseases of salivary glands (principal)
CPT/HCPCS: 70491; Q9967

== ENCOUNTER → 2022-11-03 | Outpatient (CLI) | payer OTHER, SELFPAY ==
--- NOTE | 2022-11-03 17:08 | MRI_ITS ---
STUDY: MRI BRAIN WITH AND WITHOUT CONTRAST (ATTENTION INTERNAL AUDITORY CANALS - I.A.C.''s) REASON FOR EXAM: Male, 62 years old. Walker''s palsy TECHNIQUE: Standardized multiplanar fat and water weighted pulse sequences were obtained. ml of Yes YES contrast material was administered intravenously for the contrast portion of the examination. COMPARISON: None. FINDINGS: Normal bilateral temporal bones. Normal bilateral internal auditory canals. There is no demonstrated intracanalicular or cisternal vestibular schwannoma (acoustic neuroma). There is no enhancement of the bilateral VIIth or VIIIth cranial nerves. Normal bilateral cochlea, vestibules and semicircular canals. No cerebellar pontine angle mass or cyst is present. Normal size of the ventricles and extra-axial spaces for the patient''s age. There are a limited number of small white matter hyperintensities, distributed throughout the deep white matter tracts of the cerebral hemispheres, consistent with mild chronic white matter ischemic changes. There is no evidence for recent intracranial ischemia or other cause of cytotoxic edema on diffusion weighted imaging (DWI). Normal T2* images of the brain without demonstrated susceptibility artifact. There is no demonstrated hemosiderin stain. There are no demyelinating plagues of the supratentorial brain, brainstem or cerebellum. There are no findings suspicious for multiple sclerosis (MS). No hydrocephalus or midline shift is present. There are no focal brain parenchymal lesions or edema or infiltration. There is no abnormal thickening or enhancement of the visualized meninges or dura. No skull lesions are present. Normal bilateral basal ganglia. Normal thalami. Normal flow voids within the major intracranial circulation suggesting patency by spin echo criteria. Normal venous enhancement. There is no enhancing intra-axial or extra-axial abnormality. There is no extra-axial fluid accumulation. Normal sella turcica, pituitary gland, infundibular stalk, optic chiasm and hypothalamus. Normal tectal plate and pineal gland. Normal midbrain, joyce and medulla. Normal cerebellum. Normal basal cisterns. No demonstrated orbital abnormality, within the constraints of a routine brain study. Normal visualized paranasal sinuses. Normal calvarium and skull base. Normal visualized soft tissue structures. Normal visualized upper cervical spine. MRI/Brain W/WO Contrast IMPRESSION: 1. Normal unenhanced and enhanced MRI of the bilateral internal auditory canals (I.A.C''s). 2. Minimal chronic ischemic changes of the brain, as described above. Electronically Signed: Kp Quinn MD at 10:56 EDT ,
[2022-11-03 17:42] LABS: CREATININE FINGERSTICK < 0.9 mg/dL (0.70-1.30); EGFR FINGERSTICK > 60.0000 mL/min (>60)
== END | disposition home or self-care (01) ==
PROVIDERS: PCP Internal Medicine; Referring Provider Internal Medicine; Visit Provider Internal Medicine
DX: G51.0 Bell's palsy (principal)
CPT/HCPCS: 70553; A9575

== ENCOUNTER → 2022-11-14 | Outpatient (CLI) | payer OTHER, SELFPAY ==
--- NOTE | 2022-11-14 09:46 | US_ITS ---
INDICATION: Left testicular pain EXAMINATION: Ultrasound US Scrotum (Contents) TECHNIQUE: Realtime ultrasound of the testicles was performed with grayscale, Color Doppler and spectral Doppler analysis. COMPARISON: None. FINDINGS: RIGHT: TESTIS: 4.7 x 3.3 x 2.3 cm. Normal in size and echotexture, without focal lesion. COLOR DOPPLER: Normal arterial flow present in the testicle with monophasic waveforms. EPIDIDYMIS: Normal in size and heterogeneous echotexture, without focal lesion. [Normal color Doppler flow pattern in the epididymis. HYDROCELE: None. VARICOCELE: None. LEFT: TESTIS: 4.3 x 3.3 x 2.6 cm. Normal in size and echotexture, without focal lesion. COLOR DOPPLER: Normal arterial flow present in the testicle with monophasic waveforms. EPIDIDYMIS: Enlarged in size measuring 1.0 x 1.6 x 1.2 cm heterogeneous echotexture, with cysts up to 1.2 cm. [Normal color Doppler flow pattern in the epididymis. HYDROCELE: Mild. VARICOCELE: None. US/Testicular with Arterial Flow IMPRESSION: Mild left hydrocele. Cysts and heterogeneous echogenicity of the left epididymis. Electronically Signed: Alireza Burrell DO at 20:39 EDT Reading Location ID and State: [address] [place] [address] Tel [phone], Service support ,
== END | disposition home or self-care (01) ==
PROVIDERS: PCP Internal Medicine; Referring Provider Internal Medicine; Visit Provider Internal Medicine
DX: N50.812 Left testicular pain (principal)
CPT/HCPCS: 76870; 93976

== ENCOUNTER → 2022-11-24 | Outpatient (CLI) | payer OTHER, SELFPAY ==
[2022-11-24 12:16] LABS: Hematocrit 44.3 % (40-54); Hemoglobin 15.5 g/dL (13.0-16.5); Mean Corpuscular Hgb 30.3 pg (27.0-32.0); Mean Corpuscular Volume 86.7 fL (80-94); Mean Platelet Vol. 9.6 fl (6.2-12.0); Platelet Count 300 K/mm3 (150-450); RBC Distribution Width CV 13.6 % (11.6-14.6); RBC Distribution Width SD 43.2 fl (35.1-43.9); Red Blood Count 5.11 M/mm3 (4.6-6.2); White Blood Count 7.7 K/mm3 (4.4-11.0)
[2022-11-24 13:10] LABS: Anion Gap 4 (5-15); BUN 10 mg/dL (7-18); BUN/Creat Ratio 10.5 RATIO (10-20); Calcium,Total 9.3 mg/dL (8.5-10.1); Chloride 106 mmol/L (98-107); Creatinine, Serum 0.95 mg/dL (0.70-1.30); EST Glomerular Filtration Rate 85 mL/min (>60); Est Glom Filt Rate - Afr Amer 103 mL/min (>60); Glucose 133 mg/dL (74-106); Potassium 4.1 mmol/L (3.5-5.1); Sodium Level 138 mmol/L (136-145)
== END | disposition home or self-care (01) ==
PROVIDERS: PCP Internal Medicine; Referring Provider Urology; Visit Provider Urology
DX: Z01.812 Encounter for preprocedural laboratory examination (principal)
CPT/HCPCS: 36415; 80048; 85027

== ENCOUNTER → 2022-11-27 | Outpatient (CLI) | payer OTHER, SELFPAY ==
--- NOTE | 2022-11-27 14:06 | EKG12_ITS ---
Test Reason : PRE-OP Blood Pressure : / mmHG Vent. Rate : 070 BPM Atrial Rate : 070 BPM P-R Int : 154 ms QRS Dur : 082 ms QT Int : 368 ms P-R-T Axes : 034 -06 039 degrees QTc Int : 397 ms Normal sinus rhythm Normal ECG Confirmed by PILY RIOS, COTY ([id number]), web content editor STEVE AWAD ([id number]) on 11/29/2022 11:21:59 AM Referred By: Dean Melissa Confirmed By:BETSEY NASCIMENTO MD
== END | disposition home or self-care (01) ==
LOC: PSN 14:04
PROVIDERS: PCP Internal Medicine; Referring Provider Urology; Visit Provider Urology
DX: Z01.810 Encounter for preprocedural cardiovascular examination (principal)
CPT/HCPCS: 93005

== ENCOUNTER → 2022-12-08 | Outpatient (CLI) | payer OTHER, SELFPAY ==
--- NOTE | 2022-12-08 | EPI_PTH ---
PATIENT: HOSEA CUENCA LOC: [facility] U#:[id number] AGE/SX: 62/M ROOM: RE12/08/[address]: Dr. Dean Melissa MD : 1960 BED: DIS: 12/08/2022 SPEC #: [id number] RECD: 12/08/22 15:58 STATUS: CHRIS PHAN #: [id number] SELENA: 12/08/22 00:[address]: Dean Melissa DEPT: SURGICAL PATHOLOGY RECD BY: Fernando Ramirez ENTERED: 12/11/22 07:14 SP TYPE: EPIDIDYMIS OTHR DR: Dr. Tessa Tellez MD [facility] Tissues: Epididymis, NOS Procedures: Surgery Specimen Level III HEADER OPERATION: Left epididymectomy, spermatocelectomy PRE-OP DIAGNOSIS: Left sided scrotal pain TISSUE SUBMITTED: Left epididymis MICROSCOPIC DIAGNOSIS Left epididymis, epididymectomy: Consistent with spermatocele. Spermatogenesis. AM:calixto 12/12/2022 MICROSCOPIC DESCRIPTION Slides are reviewed. GROSS DESCRIPTION Received in fixative is one container labeled with the patient's name and designated left epididymis. The specimen consists of an elongated piece of martínez soft tissue measuring 5.0 x 1.0 x 0.7 cm and weighing 2.8 gm. No obvious lesion is identified. Also present in the container is a detached cyst measuring 0.5 x 0.3 x 0.1 cm. Sections reveal a cyst at one end measuring 1.0 cm in greatest dimension. The cyst is filled with clear fluid. Full Service Supervisor sections are submitted in two cassettes. Cassette 1 contains the detached cyst and cassette 2 contains the cyst in the epididymis. / SJ:calixto 12/11/2022 TC:5 CPT: 14329
== END | disposition home or self-care (01) ==
LOC: LABSPEC 16:18
PROVIDERS: PCP Internal Medicine; Referring Provider Urology; Visit Provider Urology
DX: N50.82 Scrotal pain (principal)
CPT/HCPCS: 88304

== ENCOUNTER → 2023-01-05 | Outpatient (CLI) | payer OTHER, SELFPAY ==
--- NOTE | 2023-01-05 13:42 | CT_ITS ---
STUDY: CT ABDOMEN AND PELVIS WITHOUT CONTRAST REASON FOR EXAM: Male, 62 years old. Flank pain. Scrotal pain. Recent resection of the epididymis. RADIATION DOSAGE (If Supplied By Facility): CTDIvol = ( 18.42 ) mGy, DLP = ( 3410.20 ) mGycm TECHNIQUE: Transaxial images were obtained from the dome of the diaphragm to the symphysis pubis without oral contrast, and without intravenous contrast. Sagittal and coronal images were reconstructed. Individualized dose optimization techniques were used for this CT. COMPARISON: None. FINDINGS: There is a 5.6 mm calcified granuloma in the posterior medial segment of the right lower lobe. The visualized portions of the heart are within normal limits. Normal liver. The patient is status post cholecystectomy. Normal spleen. Normal pancreas. Normal bilateral adrenal glands. There is a 3 cm x 3.2 cm cyst in the posterior aspect of the left kidney. Normal left kidney. Normal visualized stomach. Normal small intestine. Normal colon. The appendix is visualized and appears normal. There is scattered atherosclerotic calcification of the abdominal aorta, without a demonstrated aneurysm. Normal inferior vena cava. Normal retroperitoneum. Distended urinary bladder. Questionable small bilateral hydroceles. Normal abdominal wall. Normal osseous structures. CT/Abdomen/Pelvis without Cont IMPRESSION: Status post cholecystectomy. Left renal cysts. No acute abnormality is seen. Electronically Signed: Horacio Muller MD at 15:05 EDT ,
== END | disposition home or self-care (01) ==
LOC: CT 13:41
PROVIDERS: PCP Internal Medicine; Referring Provider Internal Medicine; Visit Provider Internal Medicine
DX: R10.9 Unspecified abdominal pain (principal)
CPT/HCPCS: 74176

== ENCOUNTER → 2023-06-13 | Outpatient (CLI) | payer OTHER, SELFPAY ==
--- NOTE | 2023-06-13 06:38 | MRI_ITS ---
STUDY: MR Spine Lumbar W/O Contrast 06/13/2023 9:31 AM REASON FOR EXAM: Male, 63 years old. Back pain LBP; lower extremity radic pain; testicular pain TECHNIQUE: MR Spine Lumbar W/O Contrast Standardized fat and water weighted pulse sequences were obtained. COMPARISON: None FINDINGS: T12-L1: Normal endplates. Normal disc height, hydration and morphology. Normal bilateral facet joints. Normal central canal and bilateral lateral recesses. Normal bilateral intervertebral neural foramina. Normal lumbar lordosis. There is no substantial scoliosis. Normal conus medullaris that terminates at the L1. There are calcifications of the abdominal aorta. This is consistent for atherosclerotic disease. There is NO abdominal aortic aneurysm. Vascular workup can be obtained based on clinical correlation. There is a cyst in the left kidney. No follow up required. L1-2: Normal endplates. Normal disc height and morphology. Normal central canal and intervertebral neuroforamina. There is mild bilateral ligamentum flavum thickening. L2-3: Normal endplates. Normal disc height and morphology. Normal central canal and intervertebral neuroforamina. There is mild bilateral ligamentum flavum thickening. L3-4: Normal endplates. Normal disc height and morphology. Normal central canal and intervertebral neuroforamina. There is moderate bilateral ligamentum flavum thickening. L4-5: Normal endplates. Normal disc height with disc desiccation. Mild narrowing of the lateral recess. Severe right neural foraminal stenosis with compression of exiting right L4 nerve root. There is moderate bilateral ligamentum flavum thickening. L5-S1: Normal endplates. Normal disc height and morphology. Normal central canal and intervertebral neuroforamina. Normal visualized sacral ala. Normal visualized paraspinous soft tissue structures. MRI/Spine Lumbar (Routine) IMPRESSION: Degenerative findings at L4-5. Severe right neural foraminal stenosis with compression of the exiting right L4 nerve root. Electronically Signed: Amrit Raya MD at 9:51 EST ,
== END | disposition home or self-care (01) ==
PROVIDERS: PCP Internal Medicine; Referring Provider Psychiatry & Neurology Neurology; Visit Provider Psychiatry & Neurology Neurology
DX: M54.50 Low back pain, unspecified (principal); M54.16 Radiculopathy, lumbar region; N50.819 Testicular pain, unspecified
CPT/HCPCS: 72148

== ENCOUNTER → 2023-06-18 | Outpatient (CLI) | payer OTHER, SELFPAY ==
--- NOTE | 2023-06-18 10:19 | NEURO ---
NCS and/or EMG Patient Report Ordering Doctor: Trip Layne DATE OF SERVICE: 06/18/23 Clinical Summary: 63 year old male patient presenting with complaints of numbness and pain in the distal lower extremities. This EMG/NCS was performed to evaluate for peripheral polyneuropathy and/or right/left lumbosacral radiculopathy. Nerve Conduction Studies Summary: All SNAP's were absent in the bilateral lower extremities. The right tibial-AH CMAP distal latency was prolonged. Needle Examination Summary: Needle examination of select muscles of the bilateral lower extremities was normal. Impression: This is an abormal study. There is electrodiagnostic evidence of the following - 1) Predominantly sensory axonal, length-dependent, peripheral polyneuropathy There is no electrodiagnostic evidence of a right/left lumbosacral radiculopathy. Multi Select Codes Neurology Neurology Interp Codes: 09878-34 Musc test done w/n test comp (interp) (2) and 18023-00 Nrv cndj test 9-10 studies (interp)
== END | disposition home or self-care (01) ==
LOC: PSN 08:17
PROVIDERS: PCP Internal Medicine; Referring Provider Psychiatry & Neurology Neurology; Visit Provider Psychiatry & Neurology Neurology
DX: G62.9 Polyneuropathy, unspecified (principal); N50.819 Testicular pain, unspecified; M54.16 Radiculopathy, lumbar region; M54.50 Low back pain, unspecified
CPT/HCPCS: 95886; 95911

== ENCOUNTER → 2023-07-20 | Outpatient (CLI) | payer OTHER, SELFPAY ==
--- NOTE | 2023-07-20 08:29 | RAD_ITS ---
EXAM: XR LEFT HIP WITH PELVIS WHEN PERFORMED, 2 OR 3 VIEWS CLINICAL INDICATION: Left hip pain TECHNIQUE: Two or three views of the left hip with pelvis when performed. COMPARISON: No relevant prior studies available. FINDINGS: BONES/JOINTS: Bilateral acetabular sclerosis and hypertrophy and mild bilateral hip joint space narrowing. No displaced fracture. Sacroiliac joint is unremarkable. No widening of the pubic symphysis. SOFT TISSUES: No significant abnormality. No soft tissue swelling or gas. RAD/HIP, UNI W/ Pelvis 2-3 Views IMPRESSION: Degenerative changes. No acute osseous abnormality. Electronically Signed: Rakesh Leblanc DO at 20:26 EST ,
[2023-07-20 10:26] LABS: Erythrocyte Sedimentation Rate 10 mm/hr (0-20)
[2023-07-20 10:29] LABS: Hematocrit 47.3 % (40-54); Hemoglobin 16.3 g/dL (13.0-16.5); Mean Corp Hgb Conc 34.5 g/dL (32-36); Mean Corpuscular Hgb 29.9 pg (27.0-32.0); Mean Corpuscular Volume 86.8 fL (80-94); Mean Platelet Vol. 9.7 fl (6.2-12.0); Platelet Count 287 K/mm3 (150-450); RBC Distribution Width CV 13.5 % (11.6-14.6); RBC Distribution Width SD 42.8 fl (35.1-43.9); Red Blood Count 5.45 M/mm3 (4.6-6.2); White Blood Count 6.4 K/mm3 (4.4-11.0)
[2023-07-20 10:33] LABS: Vitamin B12 516 pg/mL (211-911)
[2023-07-20 11:35] LABS: AST(SGOT) 21 U/L (15-37); Alanine Aminotransfer ALT/SGPT 59 U/L (16-61); Albumin, Serum 3.6 g/dL (3.2-5.0); Alkaline Phosphatase 99 U/L (45-117); Anion Gap 6 (5-15); BUN 9 mg/dL (7-18); BUN/Creat Ratio 8.7 RATIO (10-20); Calcium,Total 9.2 mg/dL (8.5-10.1); Chloride 107 mmol/L (98-107); Creatinine, Serum 1.04 mg/dL (0.70-1.30); EST Glomerular Filtration Rate 76 mL/min (>60); Est Glom Filt Rate - Afr Amer 92 mL/min (>60); Globulin 3.6 g/dL (2.2-4.2); Glucose 212 mg/dL (74-106); Potassium 4.2 mmol/L (3.5-5.1); Protein, Total 7.2 g/dL (6.4-8.2); Sodium Level 137 mmol/L (136-145)
[2023-07-20 12:06] LABS: Hemoglobin A1c 7.4 % (3.8-5.6)
[2023-07-23 15:08] LABS: ANTINUCLEAR ANTIBODIES DIRECT Negative (Negative)
[2023-07-25 01:07] LABS: Free Kappa Light Chains 24.6 mg/L (3.3-19.4); Free Lambda Light Chains 12.1 mg/L (5.7-26.3); Vitamin B1, Thiamine 111.6 nmol/L (66.5-200.0)
== END | disposition home or self-care (01) ==
LOC: MTLAB 08:29
PROVIDERS: PCP Internal Medicine; Referring Provider Psychiatry & Neurology Neurology; Visit Provider Psychiatry & Neurology Neurology
DX: M25.552 Pain in left hip (principal); E11.9 Type 2 diabetes mellitus without complications; G62.9 Polyneuropathy, unspecified
CPT/HCPCS: 36415; 73502; 80053; 82607; 82746; 83036; 83883; 84425; 85027; 85652; 86038; 86225; 86235

== ENCOUNTER → 2023-09-11 | Outpatient (CLI) | payer OTHER, SELFPAY ==
--- NOTE | 2023-09-11 09:00 | RAD_ITS ---
STUDY: X-RAY - SACRUM/COCCYX REASON FOR EXAM: Male, 63 years old. Testicular pain. TECHNIQUE: 3 views of the sacrum and coccyx were obtained. COMPARISON: None. FINDINGS: Normal bilateral sacroiliac joints. Normal visualized sacral ala and fused sacral bodies. Normal sacrococcygeal junction with a normal angulation. Normal coccygeal segments. The presacral soft tissue structures are unremarkable. There is no demonstrated fracture or destructive osseous process. RAD/Sacrum-Coccyx min 2 Views IMPRESSION: Normal x-rays of the sacrum and coccyx. Electronically Signed: Chapito Harman MD at 8:21 EDT ,
[2023-09-14 14:09] LABS: Albumin 3.7 g/dL (2.9-4.4); Alpha-1-Globulins 0.2 g/dL (0.0-0.4); Alpha-2-Globulins 0.8 g/dL (0.4-1.0); Immunoglobulin A 163 mg/dL (61-437); Immunoglobulin G 987 mg/dL (603-1613); Immunoglobulin M 110 mg/dL (20-172); PROEL- TOTAL PROTEIN 6.6 g/dL (6.0-8.5)
== END | disposition home or self-care (01) ==
LOC: MTLAB 09:00
PROVIDERS: PCP Internal Medicine; Referring Provider Psychiatry & Neurology Neurology; Visit Provider Psychiatry & Neurology Neurology
DX: G58.8 Other specified mononeuropathies (principal); N50.819 Testicular pain, unspecified
CPT/HCPCS: 36415; 72220; 82784; 84165; 86334; 86335

== ENCOUNTER → 2023-12-28 | Outpatient (CLI) | payer OTHER, SELFPAY ==
--- NOTE | 2023-12-28 13:43 | MRI_ITS ---
EXAM: MR HEAD WITHOUT AND WITH INTRAVENOUS CONTRAST CLINICAL INDICATION: ATTN LEFT ORBIT, SEVERE PAIN, DIPLOPIA, COMPARE TO PREVIOUS TECHNIQUE: Multiplanar and multisequence MR images of the brain were obtained without and with intravenous contrast. CONTRAST: IV CLARISCAN 20ML COMPARISON: MR Head dated 11/03/2022 FINDINGS: BRAIN AND EXTRA-AXIAL SPACES: Normal. No intra- or extra-axial hemorrhage. No evidence of acute infarct. No intracranial mass or mass effect. Normal preservation of the ellis/white matter interface. Posterior fossa structures are unremarkable. Ventricles are appropriate for age. No hydrocephalus. Basal cisterns are patent. SELLA: Normal. Normal sella turcica, pituitary gland, infundibular stalk, optic chiasm and hypothalamus. AUDITORY SYSTEM: Normal. The internal auditory canals are patent. BONES/JOINTS: Intact calvarium. SINUSES: Opacification of left maxillary sinus again noted. MASTOID AIR CELLS: Unremarkable as visualized. Clear. ORBITS: Unremarkable as visualized. Both globes, extraocular muscles, optic nerves and retrobulbar fat appear unremarkable. VASCULATURE: Unremarkable as visualized. Normal flow voids in the major intracranial circulation. MRI/Brain W/WO Contrast IMPRESSION: 1. No acute intracranial abnormality. No interval change. 2. Left maxillary sinusitis. Electronically Signed: Shmuel Nur MD at 16:17 EDT ,
[2023-12-28 15:06] LABS: CREATININE FINGERSTICK < 1.0 mg/dL (0.70-1.30); EGFR FINGERSTICK > 60.0000 mL/min (>60)
== END | disposition home or self-care (01) ==
LOC: MRI 13:30
PROVIDERS: PCP Internal Medicine; Referring Provider Internal Medicine; Visit Provider Internal Medicine
DX: H53.2 Diplopia (principal)
CPT/HCPCS: 70553; A9575

== ENCOUNTER → 2024-01-23 | Outpatient (CLI) | payer OTHER, SELFPAY ==
--- NOTE | 2024-01-23 09:45 | RAD_ITS ---
STUDY: X-RAY - CERVICAL SPINE REASON FOR EXAM: Male, 63 years old. PAIN TECHNIQUE: 5 view(s) of the cervical spine were obtained. COMPARISON: None FINDINGS: Normal anterior atlantoaxial articulation. Normal odontoid process. Normal cervical lordosis. Prominent degenerative disc disease with osteophytes at C5-C6. Other levels are normal for age. Normal visualized intervertebral neuroforamina. The soft tissue structures are unremarkable. There is no demonstrated fracture of the cervical spine. RAD/Cerv Spine 4 or 5 Views IMPRESSION: No acute abnormality. Degenerative changes at C5-C6. Electronically Signed: Grayson Mohamud MD at 22:56 EDT ,
== END | disposition home or self-care (01) ==
LOC: MTRAD 09:41
PROVIDERS: PCP Internal Medicine; Referring Provider Clinical Nurse Specialist Adult Health; Visit Provider Clinical Nurse Specialist Adult Health
DX: M54.2 Cervicalgia (principal)
CPT/HCPCS: 72050

== ENCOUNTER → 2024-03-10 | Outpatient (CLI) | payer OTHER, SELFPAY ==
--- NOTE | 2024-03-10 09:30 | MRI_ITS ---
HISTORY: RADICULOPATHY. TECHNIQUE: Multiplanar and multisequence MR images of the cervical spine were obtained without contrast. 215 images. COMPARISON: XR 01/23/2024. FINDINGS: VERTEBRAE: Vertebral body heights maintained. Degenerative endplate changes at multiple levels, particularly at C5-6. VERTEBRAL ALIGNMENT: Straightening of the cervical lordosis without significant anterior or posterior subluxation. SPINAL CORD: Cervical cord signal and morphology within normal limits. SOFT TISSUES: No prevertebral fluid collection. INTERVERTEBRAL DISCS: C2-3, C3-4: No significant posterior disc protrusion, central canal stenosis, or foraminal narrowing. C4-5: Mild posterior disc bulge osteophyte complex resulting in mild central canal stenosis and bilateral foraminal narrowing. C5-6: Moderate posterior disc bulge osteophyte complex with uncovertebral and facet arthropathy resulting in abutment of the ventral cord, moderate central canal stenosis, and left greater than right foraminal narrowing. C6-7, C7-T1: No significant posterior disc protrusion, central canal stenosis, or foraminal narrowing MRI/Spine Cervical (Routine) IMPRESSION: Degenerative disc disease of C4-5 and C5-6 as above. Electronically Signed: Anita Morales MD at 14:23 EDT ,
== END | disposition home or self-care (01) ==
PROVIDERS: PCP Internal Medicine; Referring Provider Internal Medicine; Visit Provider Internal Medicine
DX: M54.12 Radiculopathy, cervical region (principal)
CPT/HCPCS: 72141

== ENCOUNTER → 2024-08-04 | Outpatient (CLI) | payer MEDICARE, OTHER, SELFPAY ==
--- NOTE | 2024-08-04 08:56 | US_ITS ---
EXAM: US Abdomen Limited, Right Upper Quadrant CLINICAL INDICATION: TECHNIQUE: Real-time ultrasound of the right upper quadrant with image documentation. COMPARISON: No relevant prior studies available. FINDINGS: LIVER: Hepatopetal blood flow in main portal vein. Liver measures 15.4 cm. Fatty infiltration of the liver. No intrahepatic bile duct dilation. GALLBLADDER: Status post cholecystectomy. Positive Bustamante. COMMON BILE DUCT: Unremarkable as visualized. No stones. No dilation. Common bile duct measures 0.35 cm in diameter. PANCREAS: Unremarkable as visualized. RIGHT KIDNEY: Unremarkable. No stones. No hydronephrosis. The right kidney measures 11.0 x 6.1 x 5.5 cm. US/Liver IMPRESSION: Fatty infiltration of the liver. Reading Location: [id number]
== END | disposition home or self-care (01) ==
PROVIDERS: PCP Internal Medicine; Referring Provider Internal Medicine; Visit Provider Internal Medicine
DX: R79.89 Other specified abnormal findings of blood chemistry (principal)
CPT/HCPCS: 76705

== ENCOUNTER → 2024-08-27 | Outpatient (CLI) | payer MEDICARE, OTHER, SELFPAY ==
--- NOTE | 2024-08-27 07:56 | US_ITS ---
PROCEDURE: ELASTOGRAPHY PARENCHYMA/ORGAN ([facility]), 08/27/2024 REASON FOR EXAM: [place] COMPARISON: 08/04/2024 TECHNIQUE: ReachForce S-shear wave elastography was performed for non-invasive assessment of liver tissue stiffness. FINDINGS: Number of measurements: 5 per region, total of 3 regions. Below based on the region with the lowest IQR/median ratio, site C. US probe: CA1-7A. EQI median: 5.2 kPa EQI median velocity: 1.31 m/s IQR/Med: 18.3% (kPa) and 9.2% (m/s). If the IQR/Med is IQR/median >30% (for kPa) or >15% in m/s, the variance in the measurements is a large and the accuracy of the measurement may be in question. US/Elastography Parenchyma/Organ IMPRESSION: 1. Liver stiffness is 5.2 kPa. Per the below 2020 SRU criteria, this rules out compensated advanced chronic liver disease in the absence of other known clinical signs. If there are known clinical signs, furth er testing may be needed for confirmation. Per previous SRU criteria, this would be considered consistent with METAVIR score F 0-F1. 2. Additional description as above. Assessment is per the Update to the SRU Liver Elastography Consensus Statement (2020) Note that the above assessment of liver fibrosis is vendor-neutral and intended for use in fibrosis related to viral etiologies and non-alcoholic fatty-liver disease (NAFLD); in causes other than viral hepat itis and NAFLD, the cutoff values are currently not well established. In some patients with NAFLD, the cutoff values for cACLD may be lower (7-9 kPa). Note also that in the setting of elevated LFTs, nonfasting or vascular congestion, the stage of lifer fibrosis may be overestimated. Previous SRU reference values: <1.37 m/s (5.7kPa): No to mild fibrosis 1.37 m/s - 2.2 m/s: Moderate to severe fibrosis >2.2 m/s (15kPa): Significant fibrosis / cirrhosis Reading Location: [id number]
== END | disposition home or self-care (01) ==
LOC: US 07:51
PROVIDERS: PCP Internal Medicine; Referring Provider Internal Medicine; Visit Provider Internal Medicine
DX: K75.81 Nonalcoholic steatohepatitis (NASH) (principal)
CPT/HCPCS: 76981

== ENCOUNTER → 2024-11-26 | Outpatient (CLI) | payer MEDICARE, OTHER, SELFPAY ==
--- NOTE | 2024-11-26 09:45 | US_ITS ---
PROCEDURE: TESTICULAR WITH ARTERIAL FLOW 11/26/2024 REASON FOR EXAM: ULTRASOUND OF INGUINAL REGION AND SCROTUM TECHNIQUE: TESTICULAR WITH ARTERIAL FLOW COMPARISON: Scrotal ultrasound, 11/14/2022 FINDINGS: RIGHT testicle: 4.4 x 3.4 x 2.6 cm. Arterial and venous flow is within normal limits. The head of the right epididymis measures 19 x 14 x 13 mm and contains a cyst measuring 11 x 8 x 5 mm. There is small right hydrocele. LEFT testicle: 1.4 x 3.3 x 2.3 cm. Arterial and venous flow is within normal limits. The head of the left epididymis is surgically absent. There is no left hydrocele or varicocele. US/Testicular with Arterial Flow IMPRESSION: 1. Normal testes. 2. Right epididymal cyst. 3. Small right hydrocele. 4. The left epididymal head is surgically absent. Reading Location: [id number]
--- NOTE | 2024-11-26 09:45 | US_ITS ---
PROCEDURE: TESTICULAR WITH ARTERIAL FLOW 11/26/2024 REASON FOR EXAM: ULTRASOUND OF INGUINAL REGION AND SCROTUM TECHNIQUE: TESTICULAR WITH ARTERIAL FLOW COMPARISON: Scrotal ultrasound, 11/14/2022 FINDINGS: RIGHT testicle: 4.4 x 3.4 x 2.6 cm. Arterial and venous flow is within normal limits. The head of the right epididymis measures 19 x 14 x 13 mm and contains a cyst measuring 11 x 8 x 5 mm. There is small right hydrocele. LEFT testicle: 1.4 x 3.3 x 2.3 cm. Arterial and venous flow is within normal limits. The head of the left epididymis is surgically absent. There is no left hydrocele or varicocele. US/Testicular with Arterial Flow IMPRESSION: 1. Normal testes. 2. Right epididymal cyst. 3. Small right hydrocele. 4. The left epididymal head is surgically absent. Reading Location: [id number]
== END | disposition home or self-care (01) ==
LOC: US 09:44
PROVIDERS: PCP Internal Medicine; Referring Provider Internal Medicine; Visit Provider Internal Medicine
DX: N50.819 Testicular pain, unspecified (principal); N43.3 Hydrocele, unspecified; N50.3 Cyst of epididymis
CPT/HCPCS: 76870; 93976

== ENCOUNTER → 2025-04-30 | Outpatient (CLI) | payer MEDICARE, OTHER, SELFPAY ==
[2025-04-30 10:40] LABS: Hematocrit 43.1 % (40-54); Hemoglobin 14.6 g/dL (13.0-16.5); Immature Granulocytes Count 0.080 X10^3/uL (0.0-0.0); Mean Corp Hgb Conc 33.9 g/dL (32-36); Mean Corpuscular Volume 86.0 fL (80-94); Mean Platelet Vol. 9.6 fl (6.2-12.0); NRBC Flagged by Analyzer 0 % (0-5); Platelet Count 295 K/mm3 (150-450); RBC Distribution Width CV 14.2 % (11.6-14.6); RBC Distribution Width SD 43.8 fl (35.1-43.9); Red Blood Count 5.01 M/mm3 (4.6-6.2); White Blood Count 7.3 K/mm3 (4.4-11.0)
[2025-04-30 10:56] LABS: AST(SGOT) 26 U/L (<=37); Alanine Aminotransfer ALT/SGPT 53 U/L (<=46); Albumin, Serum 4.0 g/dL (3.4-4.8); Alkaline Phosphatase 82 U/L (40-129); Anion Gap 8 (5-15); BUN 10 mg/dL (4-19); BUN/Creat Ratio 11.8 RATIO (10-20); Calcium,Total 9.1 mg/dL (7.6-11.0); Carbon Dioxide 27.2 mmol/L (21.0-32.0); Chloride 104 mmol/L (98-108); Globulin 2.5 g/dL (2.2-4.2); Glucose 127 mg/dL (70-99); Potassium 4.3 mmol/L (3.3-5.1)
[2025-05-01 15:08] LABS: PROEL- A/G Ratio 1.2 (0.7-1.7); PROEL- Albumin 3.4 g/dL (2.9-4.4); PROEL- Alpha-1 Globulin 0.2 g/dL (0.0-0.4); PROEL- Alpha-2 Globulin 0.8 g/dL (0.4-1.0); PROEL- Beta Globulin 0.9 g/dL (0.7-1.3); PROEL- Gamma Globulin 0.9 g/dL (0.4-1.8); PROEL- Globulin, Total 2.8 g/dL (2.2-3.9); PROEL- TOTAL PROTEIN 6.2 g/dL (6.0-8.5); PROEL-M-Spike Not Observed g/dL (Not Observed)
== END | disposition home or self-care (01) ==
LOC: CIMLAB 08:21
PROVIDERS: PCP Internal Medicine; Referring Provider Internal Medicine; Visit Provider Internal Medicine
DX: R76.89 Other specified abnormal immunological findings in serum (principal); I10 Essential (primary) hypertension
CPT/HCPCS: 36415; 80053; 83883; 84165; 85025